=== PATIENT | female | born 1970 | race Two or more races ===

== ENCOUNTER 2024-09-16 09:16 | Emergency (ER) | payer MEDICAID, OTHER ==
[~2024-09-16] VITALS: Ht 157.5 cm; Wt 116.9 kg
--- NOTE | 2024-09-16 09:29 | ECG ---
[facility] Test Date: 2024-09-16 Test Time: 09:26:15 Pat Name: SHALOM CAI Department: ER Room: Gender: F Principal Administrative Clerk: YURIDIA : 1970 Requested By: CLARENCE ARZATE Order Number: [id number] Reading MD: Eliezer Soto Measurements Intervals Grant Rate: 94 P: 21 WA: 135 QRS: 3 QRSD: 85 T: 89 QT: 365 QTc: 457 Interpretive Statements Sinus rhythm Nonspecific T abnormalities, lateral leads Electronically Signed On 09-17-2024 12:14:49 PDT by Eliezer Soto Please click the below link to view image of tracing.
[2024-09-16 09:37] VITALS: TEMP 98.7
--- NOTE | 2024-09-16 10:15 | ED.PDOC ---
History of Present Illness HPI Comments 54-year-old female presents to the ER with prior medical history of hypertension, high lipids, thyroid and the chief compliant of high blood pressure. Patient reports she woke up this morning at 4:00 a.m. due from headache, the patient checked her blood pressure which was systolicly of the high 200s. In triage the patient had blood pressure of 177/100 and an Accu-Chek of 132. Denies chills, fever, N/V/D, SOB, CP. No other associated symptoms, modifiers, recent injuries or sick contacts present at this time. Chief Complaint: Headache Time Seen by MD: 09:30 Primary Care Provider: JENNY Craig Notes: Nurses Notes, Medications, Allergies Allergies: Coded Allergies: NO KNOWN ALLERGIES (Unverified , 09/16/24) Information Source: Patient Mode of Arrival: Ambulatory Severity: Moderate Timing: Hours Duration: Since onset, Hours Prehospital treatment: None Past Medical History PAST MEDICAL HISTORY: High Lipids, HTN, Thyroid Surgical History: Denies all surgeries SMOKING PIPE LINER History: No Pertinent SMOKING PIPE LINER History Family History Family History: Reviewed,noncontributory to illness, Unknown Social History Smoker: Non-Smoker Alcohol: Denies ETOH Use Drugs: Denies Drug Use Lives In: Home Constitutional: reports: others (High blood pressure); denies: chills, diaphoresis, fatigue, fever, malaise, sweats, weakness EENTM: denies: blurred vision, double vision, ear bleeding, ear discharge, ear drainage, ear pain, ear ringing, eye pain, eye redness, hearing loss, mouth pain, mouth swelling, nasal discharge, nose bleeding, nose congestion, nose pain, photophobia, tearing, throat pain, throat swelling, voice changes, others Respiratory: denies: cough, hemoptysis, orthopnea, SOB at rest, shortness of breath, SOB with excertion, stridor, wheezing, others Cardiovascular: denies: chest pain, dizzy spells, diaphoresis, Dyspnea on exertion, edema, irregular heart beat, left arm pain, lightheadedness, palpitations, PND, syncope, others Gastrointestinal: denies: abdomen distended, abdominal pain, blood streaked bowels, constipated, diarrhea, dysphagia, difficulty swallowing, hematemesis, melena, nausea, poor appetite, poor fluid intake, rectal bleeding, rectal pain, vomiting, others Genitourinary: denies: abnormal vagina bleeding, burning, dyspareunia, dysuria, flank pain, frequency, hematuria, incontinence, pain, , vagina discharge, urgency, others Neurological: reports: headache; denies: dizziness, fainting, left sided numbness, left sided weakness, numbness, paresthesia, pre-existing deficit, right sided numbness, right sided weakness, seizure, speech problems, tingling, tremors, weakness, others Musculoskeletal: denies: back pain, gout, joint pain, joint swelling, muscle pain, muscle stiffness, neck pain, others Integumetry: denies: bruises, change in color, change in hair/nails, dryness, laceration, lesions, lumps, rash, wounds, others Allergic/Immunocompromised: denies: Difficulty Healing, Frequent Infections, Hives, Itching, others Hematologic/Lymphatic: denies: anemia, blood clots, easy bleeding, easy bruising, swollen glands, others Endocrine: denies: excessive hunger, excessive sweating, excessive thirst, excessive urination, flushing, intolerance to cold, intolerance to heat, unexplained weight gain, unexplained weight loss, others Psychiatric: denies: anxiety, bipolar disorder, depression, hopeless, panic disorder, schizophrenia, sleepless, suicidal, others All Other Systems: Reviewed and Negative Physical Exam General Appearance: Moderate Distress, Normal HEENT: Normal ENT Inspection, Pharynx Normal, TMs Normal Neck: Full Range of Motion, Non-Tender, Normal, Normal Inspection Respiratory: Chest Non-Tender, Lungs Clear, No Accessory Muscle Use, No Respiratory Distress, Normal Breath Sounds Cardiovascular: No Edema, No JVD, No Murmur, No Gallop, Normal Peripheral Pulses, Regular Rate/Rhythm Breast Exam: Deferred Gastrointestinal: No Organomegaly, Non Tender, No Pulsatile Mass, Normal Bowel Sounds, Soft Genitalia: Deferred Pelvic: Deferred Rectal: Deferred Extremities: No calf tenderness, Normal capillary refill, Normal inspection, Normal range of motion, Non-tender, No pedal edema Musculoskeletal : Apperance: Normal Neurologic: Alert, leak detector II-XII nml as Tested, No Motor Deficits, Normal Affect, Normal Mood, No Sensory Deficits Cerebellar Function: Normal Reflexes: Normal Skin: Dry, Normal Color, Warm Peripheral Pulses: 3+ Radial (R), 3+ Radial (L) Lymphatic: No Adenopathy Was a procedure done? Was a procedure done?: No EKG EKG : Pulse Rate (adult): 94 [place]: Normal Cardiac Rhythm: NSR Block: None Hypertrophy: None ST: Normal Differential Dx Considerations may include: Hypertension X-Ray, Labs, Meds, VS Vital Signs Date Time Temp Pulse Resp B/P (MAP) Pulse Ox O2 Delivery O2 Flow Rate FiO2 09/16/24 11:31 85 16 135/70 (91) 97 09/16/24 11:23 135/70 09/16/24 11:05 99 16 157/88 (111) 97 09/16/24 10:23 189/105 09/16/24 10:15 94 09/16/24 09:37 98.7 98 15 177/100 (125) 97 98.7 09/16/24 09:30 98.7 98 15 177/100 (125) 97 98.7 09/16/24 09:26 94 Lab Test 09/16/24 10:07 09/16/24 09:27 Range/Units Sodium Level 139 136-145 mmol/L Potassium Level 4.3 3.5-5.1 mmol/L Chloride Level 105 98-107 mmol/L Carbon Dioxide Level 26 20-31 mmol/L Anion Gap 8 5-15 Blood Urea Nitrogen 12 9-23 mg/dL Creatinine 0.73 0.550-1.02 mg/dL Glomerular Filtration Rate Calc 96 >90 mL/min BUN/Creatinine Ratio 16.4 10.0-20.0 Serum Glucose 139 H 74-106 mg/dL Calcium Level 9.6 8.7-10.4 mg/dL Troponin I High Sensitivity 3 L </=34 ng/L POC Glucose 132 H 70-106 mg/dl Current Medications Medications (Trade) Dose Ordered Sig/Chance Route Start Time Stop Time Status Last Admin Clonidine HCl (Catapres Tablet) 0.2 mg ONCE ONCE PO 09/16/24 09:45 09/16/24 09:46 DC 09/16/24 10:23 Ibuprofen (Motrin Tablet) 600 mg ONCE ONCE PO 09/16/24 10:45 09/16/24 10:46 DC 09/16/24 10:42 Patient alert. Came in because of high blood pressure. Vitals stable. Answering questions. Blood pressure controlled with clonidine. Headache control with Motrin. Good muscle strength. CT scan of the head was not done because her physical examination was pristine. Cardiac marker within normal limits. Was given prescription of clonidine to take only when needed. Explained to the patient. Was told to follow up with her primary care physician. Was told to come back if there is any problem. Time of 1ST Reevaluation: 10:00 Reevaluation 1ST: Unchanged Time of 2ND Reevaluation: 11:54 Reevaluation 2ND: Improved (Much better after medication) Patient Education/Counseling: Diagnosis, Treatment, Prognosis Family Education/Counseling: No Family Present Departure 1 Departure Time of Disposition: 11:56 Impression: Primary Impression: Hypertensive urgency Disposition: 01 HOME / SELF CARE / HOMELESS Condition: Good e-Prescriptions Clonidine Hydrochloride (Clonidine Hcl) 0.1 Mg Tab 0.1 MG PO DAILY for 3 Days, #3 MG Prov: CLARENCE ARZATE MD 09/16/24 Discharged With: Self Critical Care Note Critical Care Time?: No Stability Stability form required: No Heart Score Heart Score: Heart Score Response (Comments) Value History N/A 0 EKG N/A 0 Age N/A 0 Risk Factors N/A 0 Troponin N/A 0 Total 0 I personally scribed for CLARENCE ARZATE MD ([email or web address]) on 09/16/24 at 10:15. Electronically submitted by Konstantin Ledesma ([email or web address]). CLARENCE ARZATE MD September 16, 2024 10:15
[2024-09-16] MEDS: cloNIDine HCL 0.1 MG TAB PO ONE (10:23)
[2024-09-16] MEDS: HYDROcodone-ACET 10/325MG TAB PO ONE (10:23)
[2024-09-16 10:34] LABS: Chloride 105 mmol/L (98-107); Potassium 4.3 mmol/L (3.5-5.1); Sodium 139 mmol/L (136-145)
[2024-09-16 10:35] LABS: Anion Gap 8 (5-15); Carbon Dioxide 26 mmol/L (20-31)
[2024-09-16 10:36] LABS: Calcium 9.6 mg/dL (8.7-10.4)
[2024-09-16 10:40] LABS: BUN/Creatinine Ratio 16.4 (10.0-20.0); Blood Urea Nitrogen 12 mg/dL (9-23)
[2024-09-16 10:42] LABS: Glucose 139 mg/dL (74-106)
[2024-09-16] MEDS: IBUPROFEN 600 MG TAB PO ONE (10:42)
[2024-09-16 11:31] VITALS: BP 135/70; PULSE 85; RESP 16; O2SAT 97
[2024-09-16] MEDS ORDERED: CLON0.1T PO (11:57)
== END 2024-09-16 12:12 | disposition home or self-care (01) ==
LOC: ER 09:16
DX: I16.0 Hypertensive urgency (principal); E78.5 Hyperlipidemia, unspecified
CPT/HCPCS: 36415; 80048; 82947; 82962; 84484; 93005